=== PATIENT | female | born 1945 | race Caucasian/White ===

== ENCOUNTER 2020-04-13 14:37 | Inpatient (IN) | payer MEDICARE, SELFPAY ==
[2020-04-13] VITALS (12 sets, daily range): BP systolic 107–181; BP diastolic 51–102; PULSE 86–150; RESP 16–32; TEMP 36.1–36.7; O2SAT 95–100; BMI 35.6; BMI 34.9
--- NOTE | 2020-04-13 | ECG_ITS ---
Test Reason : CHEST PAIN Blood Pressure : / mmHG Vent. Rate : 101 BPM Atrial Rate : 277 BPM P-R Int : 000 ms QRS Dur : 084 ms QT Int : 378 ms P-R-T Axes : 010 003 182 degrees QTc Int : 490 ms Atrial flutter with variable A-V block Low voltage QRS Cannot rule out Anterior infarct (cited on or before 07-AUG-2018) ST & T wave abnormality, consider lateral ischemia Abnormal ECG When compared with ECG of 13-APR-2020 15:03, Heart rate has decreased ST more depressed Lateral leads Referred By: Sharri Sims Electronically Signed By:RADHA CHANEY MD
--- NOTE | 2020-04-13 14:40 | PC.NURSE ---
PT ARRIVES VIA EMS, SOB SINCE THIS AM. TACHYPNEIC, TACHYCARDIC, HYPERTENSIVE, ACCESSORY MUSCLE USE. AFEBRILE. 22G IN R HAND, 20G IN R AC. LABS DRAWN. MD AND RT AT BEDSIDE, BIPAP APPLIED.
--- NOTE | 2020-04-13 14:46 | XR_ITS ---
EXAMINATION: XR CHEST CLINICAL INFORMATION: Chest pain. COMPARISON: Chest done on 08/07/2018. TECHNIQUE: Frontal view of the chest was obtained. FINDINGS: Interval development of dense airspace opacity is noted at right lower lobe of the lung. Previously identified bilateral diffuse prominent interstitial lung markings, small left-sided pleural effusion, pulmonary venous congestion, most consistent with underlying moderate CHF is reidentified. Persistent stable moderate enlargement of the cardiomediastinal silhouette is noted. Previously documented left IJ central line has been removed. Interval placement of a vascular stent seen projecting over the infraclavicular region on the left. IMPRESSION: Abnormal chest radiograph showing features most consistent with moderate CHF, similar to prior study. Superimposed new airspace opacity is noted at right lower lobe of the lung, may represent superimposed evolving pneumonia versus edema or combination thereof.
--- NOTE | 2020-04-13 14:46 | ECG_ITS ---
Test Reason : SOB Blood Pressure : / mmHG Vent. Rate : 143 BPM Atrial Rate : 143 BPM P-R Int : 176 ms QRS Dur : 074 ms QT Int : 268 ms P-R-T Axes : 000 020 232 degrees QTc Int : 413 ms Poor data quality, interpretation may be adversely affected Atrial flutter with 2 to 1 block Low voltage QRS Cannot rule out Anteroseptal infarct (cited on or before 07-AUG-2018) ST & T wave abnormality, consider inferolateral ischemia Abnormal ECG When compared with ECG of 07-AUG-2018 13:10, aflutter has replaced Atrial fibrillation Referred By: Sharri Sims Electronically Signed By:RADHA CHANEY MD
[2020-04-13] MEDS: Furosemide 100 MG/10 ML VIAL IVPUSH (14:57)
[2020-04-13] MEDS: ondansetron HCL 4 MG/2 ML VIAL IVPUSH (14:57)
--- NOTE | 2020-04-13 14:57 | ED.SOB ---
HPI - SOB/Dyspnea General Chief Complaint: Dyspnea Stated Complaint: difficulty breathing Time Seen by Provider: 04/13/20 14:45 Source: patient Mode of arrival: EMS History of Present Illness HPI Narrative: this is a 75 years old of female brought here by ambulance in ,acute respiratory distress, she has history of chronic renal failure on hemodialysis last dialysis was on Tuesday. She arrived hypoxic despite t 100% non rebreathing mask, elicited complaint: shortness of breath Pertinent past history: other ( chronic renal failure) Onset (ago): hour(s) (2) Timing: constant Severity: severe Exacerbating factors: lying flat Relieving factors: oxygen Known history of: congestive heart failure Related Data Allergies Allergy/AdvReac Type Severity Reaction Status Date / Time acetaminophen [From VICODIN] Allergy Intermediate UNKNOWN Unverified 03/20/20 14:52 hydrocodone [From VICODIN] Allergy Intermediate UNKNOWN Unverified 03/20/20 14:52 ibuprofen [From MOTRIN] Allergy Intermediate UNKNOWN Unverified 03/20/20 14:52 codeine [CODEINE] AdvReac Intermediate HEADACHE, Unverified 03/20/20 14:52 headaches Review of Systems Review of Systems: Yes all other systems are reviewed and are negative Cardiovascular: Cardiovascular: Reports rapid heart rate, Reports dyspnea and Reports dyspnea on exertion Respiratory: Respiratory: Reports dyspnea and Reports dyspnea on exertion Gastrointestinal: Gastrointestinal: Reports no additional gastrointestinal complaints Neurologic: Reports system reviewed and no additional complaints, except as documented PMFSH Past Medical History Attestation statement: The following information was validated with the patient. Medical History Asthma Kidney failure Social History Social History Alcohol intake: never Smoking Status: Never smoker Use of substances other than those prescribed or required for medical reasons: No Advance Directives: No Advance Directives Information Provided: No Physical Exam Vital Signs: Vital Signs: Vital Signs Temp Pulse Resp BP Pulse Ox 04/13/20 15:43 86 18 136/80 95 04/13/20 15:12 129 H 24 H 162/75 H 97 04/13/20 15:03 142 H 29 H 160/90 H 100 04/13/20 14:57 98.0 F 142 H 32 H 181/102 H 99 Body Mass Index 34.9 Const: General: acute distress and anxious Orientation/consciousness: patient oriented x3 HENMT: Head: Yes normal to inspection Ears: external ears normal Face and sinus: Yes normal facial exam Mouth: Normal oral and palatal mucosa present Neck: Neck: Yes normal visual inspection Chest: Chest palpation & inspection: normal inspection of the chest Resp: Effort & Inspection: abnormal respiratory pattern, labored, respiratory distress and uses accessory muscles Cardio: Rate: tachycardic GI: Inspection: Yes normal to inspection Percussion: Yes normal to percussion Auscultation: normal bowel sounds Skin: General skin exam: no rashes or lesions noted Neuro: General: patient oriented x3 Extrem: General: Yes full ROM and Yes capillary refill normal Psych: Affect: Anxious affect present Course Reevaluation(s) Reevaluation #1: at this time she is doing much better she is on BiPAP saturation is 100%, she is still tachycardic with a heart rate of 140 Time: 16:35 Reevaluation #2: seen by mine exploration engineer in the emergency department, spoke with Nephrology dr Valencia clinically much improved the clinical picture is consistent with pulmonary edema, she was hypertensive requiring IV nitro, she was tachycardic which improved after nitro and BiPAP patient will be dialyzed we did a bedside echo she has no pericardial effusion. Time: 16:46 MDM - SOB/Dyspnea Lab Data Result diagrams: 04/13/20 14:50 04/13/20 15:35 Labs: Lab Results 04/13/20 04/13/20 04/13/20 Range/Units 14:50 14:50 14:50 WBC 13.3 H (4.8-10.8) X10*3/uL RBC 3.66 L (4.20-5.50) X10*6/uL Hgb 12.2 (12.0-16.0) g/dl Hct 37.3 (37-47) % MCV 101.9 H (80-98) fL MCH 33.3 H (27.0-33.0) pg MCHC 32.7 (31.0-35.0) g/dl RDW 13.3 (11.0-16.0) % Plt Count 234 (160-400) X10*3/uL MPV 10.1 (9.4-12.3) fL Immature Gran % (Auto) 0.4 (0.0-0.4) % Neut % (Auto) 71.1 (45-73) % Lymph % (Auto) 21.4 (20-40) % [place] % (Auto) 5.8 (2-11) % Eos % (Auto) 1.0 (0-4) % Baso % (Auto) 0.3 (0-2) % Lymph # (Auto) 2.9 (1.2-4.9) X10*3/uL [place] # (Auto) 0.8 (0.1-1.2) X10*3/uL Eos # (Auto) 0.1 (0.0-0.4) X10*3/uL Baso # (Auto) 0.0 (0.0-0.2) X10*3/uL Abs Immat Gran (auto) 0.06 H (0.00-0.03) X10*3/uL Absolute Neuts (auto) 9.5 H (2.0-8.3) X10*3/uL Absolute Nucleated RBC 0.000 (0.0-0.012) X10*3/uL Nucleated RBC % (auto) 0.0 (0.0-0.2) /100WBC PT 25.6 H (10.8-13.0) SEC INR 2.1 H (0.9-1.1) APTT 38.0 (24.1-38.0) SEC ABG pH (7.35-7.45) ABG pCO2 (32-45) mmhg ABG pO2 (83-108) mmhg ABG HCO3 (22-26) mmol/l ABG O2 Saturation % ABG Base Excess Oxygen Given Sodium Cancelled Potassium Cancelled Chloride Cancelled Carbon Dioxide Cancelled Anion Gap Cancelled BUN Cancelled Creatinine Cancelled Estim Creat Clear Calc Cancelled Estimated GFR Cancelled Random Glucose Cancelled Calcium Cancelled Total Bilirubin Cancelled AST Cancelled ALT Cancelled Alkaline Phosphatase Cancelled Troponin I High Sens Total Protein Cancelled Albumin Cancelled 04/13/20 04/13/20 04/13/20 Range/Units 14:50 15:00 15:35 WBC (4.8-10.8) X10*3/uL RBC (4.20-5.50) X10*6/uL Hgb (12.0-16.0) g/dl Hct (37-47) % MCV (80-98) fL MCH (27.0-33.0) pg MCHC (31.0-35.0) g/dl RDW (11.0-16.0) % Plt Count (160-400) X10*3/uL MPV (9.4-12.3) fL Immature Gran % (Auto) (0.0-0.4) % Neut % (Auto) (45-73) % Lymph % (Auto) (20-40) % [place] % (Auto) (2-11) % Eos % (Auto) (0-4) % Baso % (Auto) (0-2) % Lymph # (Auto) (1.2-4.9) X10*3/uL [place] # (Auto) (0.1-1.2) X10*3/uL Eos # (Auto) (0.0-0.4) X10*3/uL Baso # (Auto) (0.0-0.2) X10*3/uL Abs Immat Gran (auto) (0.00-0.03) X10*3/uL Absolute Neuts (auto) (2.0-8.3) X10*3/uL Absolute Nucleated RBC (0.0-0.012) X10*3/uL Nucleated RBC % (auto) (0.0-0.2) /100WBC PT (10.8-13.0) SEC INR (0.9-1.1) APTT (24.1-38.0) SEC ABG pH 7.38 (7.35-7.45) ABG pCO2 42 (32-45) mmhg ABG pO2 203 H (83-108) mmhg ABG HCO3 24 (22-26) mmol/l ABG O2 Saturation 99.2 % ABG Base Excess -1.1 Oxygen Given 100% Sodium 141 Potassium 4.9 Chloride 100 Carbon Dioxide 24 Anion Gap 22 H BUN 45 H Creatinine 8.18 H* Estim Creat Clear Calc 6.5 Estimated GFR 5 Random Glucose 194 H Calcium 8.9 Total Bilirubin 0.5 AST 12 ALT 9 Alkaline Phosphatase 129 H Troponin I High Sens Cancelled Total Protein 6.9 Albumin 4.1 04/13/20 Range/Units 15:35 WBC (4.8-10.8) X10*3/uL RBC (4.20-5.50) X10*6/uL Hgb (12.0-16.0) g/dl Hct (37-47) % MCV (80-98) fL MCH (27.0-33.0) pg MCHC (31.0-35.0) g/dl RDW (11.0-16.0) % Plt Count (160-400) X10*3/uL MPV (9.4-12.3) fL Immature Gran % (Auto) (0.0-0.4) % Neut % (Auto) (45-73) % Lymph % (Auto) (20-40) % [place] % (Auto) (2-11) % Eos % (Auto) (0-4) % Baso % (Auto) (0-2) % Lymph # (Auto) (1.2-4.9) X10*3/uL [place] # (Auto) (0.1-1.2) X10*3/uL Eos # (Auto) (0.0-0.4) X10*3/uL Baso # (Auto) (0.0-0.2) X10*3/uL Abs Immat Gran (auto) (0.00-0.03) X10*3/uL Absolute Neuts (auto) (2.0-8.3) X10*3/uL Absolute Nucleated RBC (0.0-0.012) X10*3/uL Nucleated RBC % (auto) (0.0-0.2) /100WBC PT (10.8-13.0) SEC INR (0.9-1.1) APTT (24.1-38.0) SEC ABG pH (7.35-7.45) ABG pCO2 (32-45) mmhg ABG pO2 (83-108) mmhg ABG HCO3 (22-26) mmol/l ABG O2 Saturation % ABG Base Excess Oxygen Given Sodium Potassium Chloride Carbon Dioxide Anion Gap BUN Creatinine Estim Creat Clear Calc Estimated GFR Random Glucose Calcium Total Bilirubin AST ALT Alkaline Phosphatase Troponin I High Sens 129.9 H Total Protein Albumin Imaging Data Chest x-ray: Radiologist's impression: COMPARISON: Chest done on 08/07/2018. TECHNIQUE: Frontal view of the chest was obtained. FINDINGS: Interval development of dense airspace opacity is noted at right lower lobe of the lung. Previously identified bilateral diffuse prominent interstitial lung markings, small left-sided pleural effusion, pulmonary venous congestion, most consistent with underlying moderate CHF is reidentified. Persistent stable moderate enlargement of the cardiomediastinal silhouette is noted. Previously documented left IJ central line has been removed. Interval placement of a vascular stent seen projecting over the infraclavicular region on the left. IMPRESSION: Abnormal chest radiograph showing features most consistent with moderate CHF, similar to prior study. Superimposed new airspace opacity is noted at right lower lobe of the lung, may represent superimposed evolving pneumonia versus edema or combination thereof. ECG Data Attestation: I personally reviewed and interpreted this ECG as follows: ECG interpretation time: 15:16 Pacemaker model: Rapid a fib with left bundle branch block Critical Care Time Critical Care Time Critical Care Time: Yes Total Critical Care Time: 45 Attestation: BiPAP consult with nephrology, consult with mine exploration engineer, reported by the residential supervisor Discharge Plan Discharge Clinical Impression: Pulmonary edema Qualifiers: Chronicity: acute Qualified Code(s): J81.0 - Acute pulmonary edema Patient Disposition: Admitted As Inpatient
[2020-04-13 15:06] LABS: MANUAL DIFF FLAG NO
[2020-04-13 15:06] LABS: Pt Ventilation O2% 100%
[2020-04-13 15:07] LABS: Basophils Percent Auto 0.3 % (0-2); Eosinophils Absolute Auto 0.1 X10*3/uL (0.0-0.4); Hematocrit 37.3 % (37-47); Hemoglobin 12.2 g/dl (12.0-16.0); Imm Gran Abs Auto 0.06 X10*3/uL (0.00-0.03); Imm Gran Pct Auto 0.4 % (0.0-0.4); Lymphocytes Absolute Auto 2.9 X10*3/uL (1.2-4.9); Lymphocytes Percent Auto 21.4 % (20-40); Mean Corpuscular HGB Conc 32.7 g/dl (31.0-35.0); Mean Corpuscular Hemoglobin 33.3 pg (27.0-33.0); Mean Corpuscular Volume 101.9 fL (80-98); Mean Platelet Volume 10.1 fL (9.4-12.3); Monocytes Absolute Auto 0.8 X10*3/uL (0.1-1.2); Monocytes Percent Auto 5.8 % (2-11); Neutrophils Absolute Auto 9.5 X10*3/uL (2.0-8.3); Neutrophils Percent Auto 71.1 % (45-73); Platelet Count 234 X10*3/uL (160-400); Red Blood Count 3.66 X10*6/uL (4.20-5.50); Red Cell Distribution Width 13.3 % (11.0-16.0); White Blood Count 13.3 X10*3/uL (4.8-10.8)
--- NOTE | 2020-04-13 15:08 | PC.NURSE ---
2L O2 AT HOME.AV FISTULA IN R ARM. NITRO HUNG. PT VOMITING, GIVEN ZOFRAN.
--- NOTE | 2020-04-13 15:09 | PC.NURSE ---
DAUGHTER JOSE FELIZ [phone]
--- NOTE | 2020-04-13 15:09 | PC.NURSE ---
O2 REDUCED TO 50%, TOLERATED WELL BY PT. SPO2 REMAINS 99%. REMAINS TACHYCARDIC, EKG AT BEDSIDE
[2020-04-13 15:10] LABS: pH ABG 7.38 (7.35-7.45)
[2020-04-13 15:11] LABS: ABG PCO2 42 mmhg (32-45); Base Excess ABG -1.1; HCO3 ABG 24 mmol/l (22-26); Oxygen Saturation ABG 99.2 %; PO2 ABG 203 mmhg (83-108)
[2020-04-13 15:13] LABS: INTERNATIONAL NORM RATIO 2.1 (0.9-1.1); Prothrombin Time 25.6 SEC (10.8-13.0)
[2020-04-13] MEDS: LORazepam 2 MG/ML VIAL 0.5 MG IVPUSH (16:18)
--- NOTE | 2020-04-13 16:19 | PC.NURSE ---
Pt speaking to daughter
[2020-04-13 16:35] LABS: Alanine Aminotransferase 9 U/L (0-31); Albumin Level 4.1 g/dL (3.5-5.0); Alkaline Phosphatase 129 U/L (39-117); Anion Gap 22 (12-20); Aspartate Amino Transferase 12 U/L (5-31); Bilirubin Total 0.5 mg/dL (0.0-1.0); Blood Urea Nitrogen 45 mg/dL (9-16); Calcium 8.9 mg/dL (8.4-10.2); Carbon Dioxide 24 mmol/L (22-29); Chloride 100 mmol/L (96-108); Creatinine Clr Calc Pharmacy 6.5; Estimated Glomerular Filt Rate 5; Glucose Random 194 mg/dL (60-115); Potassium 4.9 mmol/l (3.3-5.1); Sodium 141 mmol/L (135-145); Total Protein 6.9 g/dL (6.5-8.0)
[2020-04-13 16:36] LABS: Troponin-I High Sensitivity 129.9 ng/L (<3.5-17.0)
[2020-04-13] MEDS: Albuterol/Iprat 2.5/0.5MG 3 ML AMPUL.NEB INHALE (16:42)
--- NOTE | 2020-04-13 18:02 | PM.CCHP ---
History of Present Illness Date of Service: 04/13/20 Chief Complaint: shortness of breath 75-year-old female with end-stage renal disease on hemodialysis last treatment on Tuesday presented with acute onset of dyspnea with no associated chest pain and from what I can see she appears to be a chronic atrial fibrillation but does have on this EKG a new left bundle branch block and bedside echo shows about a 40% ejection fraction with paradoxic septal motion due to the left bundle branch block but no primary valve or pericardial disease chest x-ray consistent with pulmonary edema and on IV nitro acute hypertension of 220 was improving symptoms were improving she had a normal appearing arterial blood gas does not appear to be grossly fluid overloaded and with new left bundle branch block not impossible that this could have an ischemic etiology she is on Coumadin with an INR of about 2 and her troponin is nonspecifically elevated at 149 Review of Systems Review of Systems: unable due to BiPAP requirement but she nods no on a 10 point review of systems and therefore they appeared to be negative Neurologic: Reports system reviewed and no additional complaints, except as documented PMFSH Past Medical History Medical History Asthma Kidney failure Cognitive capacity: appears to have good cognitive function Patient : No Family History Family history: reviewed and not pertinent Social History Social History Alcohol intake: never Smoking Status: Never smoker Use of substances other than those prescribed or required for medical reasons: No Advance Directives: No Advance Directives Information Provided: No Travel History Ebola Risk: Travel/Contact With Anyone From Affected Area/s: No Has Patient Experienced Ebola Symptoms: No Meds Allergies Allergy/AdvReac Type Severity Reaction Status Date / Time acetaminophen [From VICODIN] Allergy Intermediate UNKNOWN Unverified 03/20/20 14:52 hydrocodone [From VICODIN] Allergy Intermediate UNKNOWN Unverified 03/20/20 14:52 ibuprofen [From MOTRIN] Allergy Intermediate UNKNOWN Unverified 03/20/20 14:52 codeine [CODEINE] AdvReac Intermediate HEADACHE, Unverified 03/20/20 14:52 headaches Physical Exam Vital Signs: Vital Signs: Vital Signs Temp Pulse Resp BP Pulse Ox 04/13/20 17:26 109 H 19 121/86 99 04/13/20 15:43 86 18 136/80 95 10/11/20 15:12 129 H 24 H 162/75 H 97 04/13/20 15:03 142 H 29 H 160/90 H 100 04/13/20 14:57 98.0 F 142 H 32 H 181/102 H 99 Body Mass Index 34.9 she was awake and alert with good cognitive function much diminished respiratory effort on BiPAP without accessory muscle use diffuse bilateral rales cardiac exam by echo shows cardiomyopathy with 40% ejection fraction and paradoxic septal motion due to left bundle branch block just trace peripheral edema skin without livedo or acrocyanosis and no clubbing and no decubiti I and no rash neurologically nonfocal pupils are equal and reactive to light EKG with rapid atrial fibrillation but new left bundle branch block Results Labs Labs: Laboratory Tests 04/13/20 04/13/20 04/13/20 14:50 14:50 14:50 WBC 13.3 H RBC 3.66 L Hgb 12.2 Hct 37.3 MCV 101.9 H MCH 33.3 H MCHC 32.7 RDW 13.3 Plt Count 234 MPV 10.1 Immature Gran % (Auto) 0.4 Neut % (Auto) 71.1 Lymph % (Auto) 21.4 [place] % (Auto) 5.8 Eos % (Auto) 1.0 Baso % (Auto) 0.3 Lymph # (Auto) 2.9 [place] # (Auto) 0.8 Eos # (Auto) 0.1 Baso # (Auto) 0.0 Abs Immat Gran (auto) 0.06 H Absolute Neuts (auto) 9.5 H Absolute Nucleated RBC 0.000 Nucleated RBC % (auto) 0.0 PT 25.6 H INR 2.1 H APTT 38.0 ABG pH ABG pCO2 ABG pO2 ABG HCO3 ABG O2 Saturation ABG Base Excess Oxygen Given Sodium Cancelled Potassium Cancelled Chloride Cancelled Carbon Dioxide Cancelled Anion Gap Cancelled BUN Cancelled Creatinine Cancelled Estim Creat Clear Calc Cancelled Estimated GFR Cancelled Random Glucose Cancelled Calcium Cancelled Total Bilirubin Cancelled AST Cancelled ALT Cancelled Alkaline Phosphatase Cancelled Troponin I High Sens Total Protein Cancelled Albumin Cancelled 04/13/20 04/13/20 04/13/20 14:50 15:00 15:35 WBC RBC Hgb Hct MCV MCH MCHC RDW Plt Count MPV Immature Gran % (Auto) Neut % (Auto) Lymph % (Auto) [place] % (Auto) Eos % (Auto) Baso % (Auto) Lymph # (Auto) [place] # (Auto) Eos # (Auto) Baso # (Auto) Abs Immat Gran (auto) Absolute Neuts (auto) Absolute Nucleated RBC Nucleated RBC % (auto) PT INR APTT ABG pH 7.38 ABG pCO2 42 ABG pO2 203 H ABG HCO3 24 ABG O2 Saturation 99.2 ABG Base Excess -1.1 Oxygen Given 100% Sodium 141 Potassium 4.9 Chloride 100 Carbon Dioxide 24 Anion Gap 22 H BUN 45 H Creatinine 8.18 H* Estim Creat Clear Calc 6.5 Estimated GFR 5 Random Glucose 194 H Calcium 8.9 Total Bilirubin 0.5 AST 12 ALT 9 Alkaline Phosphatase 129 H Troponin I High Sens Cancelled Total Protein 6.9 Albumin 4.1 04/13/20 15:35 WBC RBC Hgb Hct MCV MCH MCHC RDW Plt Count MPV Immature Gran % (Auto) Neut % (Auto) Lymph % (Auto) [place] % (Auto) Eos % (Auto) Baso % (Auto) Lymph # (Auto) [place] # (Auto) Eos # (Auto) Baso # (Auto) Abs Immat Gran (auto) Absolute Neuts (auto) Absolute Nucleated RBC Nucleated RBC % (auto) PT INR APTT ABG pH ABG pCO2 ABG pO2 ABG HCO3 ABG O2 Saturation ABG Base Excess Oxygen Given Sodium Potassium Chloride Carbon Dioxide Anion Gap BUN Creatinine Estim Creat Clear Calc Estimated GFR Random Glucose Calcium Total Bilirubin AST ALT Alkaline Phosphatase Troponin I High Sens 129.9 H Total Protein Albumin Assessment and Plan (1) Pulmonary edema: Qualifiers: Chronicity: acute Qualified Code(s): J81.0 - Acute pulmonary edema Status: Acute (2) Complete left bundle branch block: Status: Acute (3) Atrial fibrillation with rapid ventricular response: Status: Acute (4) End stage renal disease on dialysis: Status: Acute (5) Hypertension associated with diabetes: Status: Acute renal physician wants to do a dialysis tonight but I have concerns about unstable ischemia and especially with a new left bundle branch block and we will get a series of troponins but now she is asymptomatic so hopefully will not require any acute transfers. IV nitroglycerin only for as long as she remains acutely hypertensive otherwise I am going to start oral Coreg both for heart rate control as well as vasodilation and will continue her aspirin and then I will evaluate need for anticoagulants in the morning because she is chronically on Coumadin presumably for her atrial fibrillation and myopathy
[2020-04-13 18:32] LABS: SARS COV2 PCR INHOUSE NEGATIVE (Negative)
--- NOTE | 2020-04-13 19:02 | PC.NURSE ---
DURING STABILIZATION OF THIS PT, VERBAL ORDER WAS RECEIVED FROM MD COTE TO HANG NITROGLYCERIN DRIP AT 40MCG/MIN. THIS MED SUCCESSFULLY BRUGH PTS SBPS DOWN FROM 200S. DRIP WAS ENDED AT 1900HRS APPROVED BY MD ZHU. BPS NOW WNL.
--- NOTE | 2020-04-13 19:48 | PC.NURSE ---
THIS RN ATTEMPTED TO ENTER VERBAL ORDER FROM MD COTE, UNABLE TO DOCUMENT CORRECT START TIME OF NITROGLYCERIN DRIP AT 1530HRS. OSKAR MCCLELLAN FROM ICU NOTIFIED.
--- NOTE | 2020-04-13 19:51 | PC.NURSE ---
PT A&OX3 UPON DEPARTURE, AWARE OF PLAN FOR CARE. PT TO BE DIALYZED IN ICU.
[2020-04-13 20:37] LABS: Troponin-I High Sensitivity 890.9 ng/L (<3.5-17.0)
[2020-04-13 21:44] LABS: Glucose, Whole Blood 183 mg/dL (60-115)
[2020-04-13] MEDS: Heparin Sodium,Porcine 5,000 UNIT/ML VIAL 5000 UNIT IVPUSH (21:58)
[2020-04-13] MEDS: Heparin Sodium,Porcine/1/2NS 25,000 UNIT/250 ML IV.SOLN 13.34 UNIT IVCONT ×2 (21:59→22:10)
[2020-04-13] MEDS: Nitroglycerin/D5W 100 MG/250 ML INFUS..BTL IVCONT (22:15)
--- NOTE | 2020-04-13 23:05 | PM.CCN ---
Critical Care Event Note Summary Code activated: No Narrative: This case had a high probability of a clinically significant, sudden, or life threatening deterioration of this patient's condition which required my full and direct attention, intervention and personal management. Approximately 45 minutes into the patient's dialysis treatment, before her 2nd troponin had resulted, and after presenting to the ED with a new left bundle branch block, patient had acute onset chest pain, several runs of V-tach, blood pressure elevated systolic in the low 200s. At that point, the second Troponin came back at 890.9, associate web developer showed ST depression then elevation. Confirmed tracings with Dr Jiménez as STEMI. Gave 5,000U heparin push and started heparin drip. Pt's BP came down with nitro paste, chest pain resolved. Called [facility] transfer line, Dr Aditya Patiño accepted pt for slab puller. I reviewed assessment and plan with the pt and she did want to go to slab puller (she is DNR/DNI), I also spoke with her daughter, Roselia Payne via telephone, who agreed with plan. I also called Dr Valencia, web applications architect in charge of pts dialysis to advise only 1/2L was taken off and dialysis had to be stopped early. Pt's VSS upon transfer. Critical Care Time (minutes): 120
== END 2020-04-13 22:30 | disposition short-term general hospital (02) | DRG 280 ==
LOC: HO.ED 17:42 → HO.ICU 18:26
PROVIDERS: Physician Assistant; Admitting Provider Internal Medicine Cardiovascular Disease; Emergency Provider Emergency Medicine; Visit Provider Internal Medicine Cardiovascular Disease
DX: I21.3 ST elevation (STEMI) myocardial infarction of unspecified site (principal); J81.0 Acute pulmonary edema; N18.6 End stage renal disease; I12.0 Hypertensive chronic kidney disease with stage 5 chronic kidney disease or end stage renal disease; I44.7 Left bundle-branch block, unspecified; Z20.828 Contact with and (suspected) exposure to other viral communicable diseases; E11.22 Type 2 diabetes mellitus with diabetic chronic kidney disease; Z99.2 Dependence on renal dialysis; Z88.5 Allergy status to narcotic agent; Z88.6 Allergy status to analgesic agent; Z66 Do not resuscitate
CPT/HCPCS: 36415; 71045; 80053; 82803; 82947; 84484; 85025; 85610; 85730; 87040; 87635; 90999; 93005; 96365; 96366; 96375; 99284; 99291; J1940; J2060; J2405